=== PATIENT | male | born 1945 | race Caucasian/White ===

== ENCOUNTER → 2016-04-11 | Outpatient (CLI) | payer BC ==
[~2016-04-11] MED LIST: ACET-1311 PO; ASPEC81 PO; BND25X PO; FLNIN NAE; MULT-506 PO; NIAC500T11 PO; SIMV40TA2 PO; SYMIN/8045 INH
== END | disposition home or self-care (01) ==
LOC: C.LABSPEC 12:30
PROVIDERS: ATTEND Internal Medicine
DX: R19.4 Change in bowel habit (principal)

== ENCOUNTER → 2016-10-21 | Outpatient (CLI) | payer BC ==
[2016-10-21 13:26] LABS: BLOOD UREA NITROGEN 17 mg/dl (7-18); BUN/CREATININE RATIO 16.6 (10-20); CALCIUM 9.2 mg/dl (8.5-10.1); CARBON DIOXIDE 25 mmol/L (21-32); CHLORIDE 109 mmol/L (98-107); GLUCOSE 112 mg/dl (70-99); POTASSIUM 4.2 mmol/L (3.5-5.1); SODIUM 141 mmol/L (136-145)
[2016-10-21 13:33] LABS: CHOLESTEROL 155 mg/dl (0-200); CHOLESTEROL/HDL RATIO 3.5; HDL CHOLESTEROL 44 mg/dl; TRIGLYCERIDES 240 mg/dl (0-150); VERY LOW DENSITY LIPOPROT CALC 48 mg/dl
[2016-10-21 13:43] LABS: ESTIMATED AVERAGE GLUCOSE 131 mg/dl; HA1C FLAG Normal (Normal)
== END | disposition home or self-care (01) ==
LOC: C.LABSPEC 12:35
PROVIDERS: ATTEND Internal Medicine
DX: Z00.00 Encounter for general adult medical examination without abnormal findings (principal); E78.5 Hyperlipidemia, unspecified; R73.9 Hyperglycemia, unspecified

== ENCOUNTER 2017-02-16 07:44 | Inpatient (IN) | payer BC, OTHER ==
[2017-01-14 09:19] VITALS: BMI 33.0
--- NOTE | 2017-01-14 09:44 | PAT Medication Instructions ---
Service Date Jan 14, 2017. Current Home Medication List Aspirin (Aspirin Ec), 81 MG PO HS B-Complex W/Biotin & Folic Aci (Super B-50 B-Complex), 1 TAB PO QAM Budesonide/Formoterol Fumarate (Symbicort 80/4.5 Inhaler), 2 PUFFS INH BID Clotrimazole (Topical) (Anti-Fungal), 1 DOSE TOP PRN Diphenhydramine Hcl (Benadryl Allergy), 50 MG PO HS Fish Oil (Blossom-3), 2 CAP PO BID Fluticasone Propionate (Nasal) (Flonase Allergy Relief), 1 SPRAY DALE BID Ibuprofen (Motrin), 800 MG PO PO Magnesium Oxide (Mag-Ox), 800 MG PO QAM Melatonin (Melatonin Maximum Strengt), 1 TAB PO HS Montelukast Sodium (Singulair), 10 MG PO HS Multivitamin (Multivitamin), 1 TAB PO QAM Niacin (Niacin), 500 MG PO BID Simvastatin (Zocor), 40 MG PO QPM Vitamin A (Vitamin A), 8,000 UNITS PO QAM Medication Instructions For Your Scheduled Surgery - Hold the following medications 2 weeks prior to surgery: Fish Oil (Blossom-3), 2 CAP PO BID - Contact your surgeon for instructions for: Ibuprofen (Motrin), 800 MG PO PO - Hold the following medications 24 hours prior to surgery: Niacin (Niacin), 500 MG PO BID Clotrimazole (Topical) (Anti-Fungal), 1 DOSE TOP PRN - Hold the following medications the morning of surgery: Vitamin A (Vitamin A), 8,000 UNITS PO QAM Multivitamin (Multivitamin), 1 TAB PO QAM Magnesium Oxide (Mag-Ox), 800 MG PO QAM B-Complex W/Biotin & Folic Aci (Super B-50 B-Complex), 1 TAB PO QAM - Take the following medications the morning of surgery: Fluticasone Propionate (Nasal) (Flonase Allergy Relief), 1 SPRAY DALE BID Budesonide/Formoterol Fumarate (Symbicort 80/4.5 Inhaler), 2 PUFFS INH BID - Take the following medications as scheduled the night before surgery: Aspirin (Aspirin Ec), 81 MG PO HS Simvastatin (Zocor), 40 MG PO QPM Montelukast Sodium (Singulair), 10 MG PO HS Melatonin (Melatonin Maximum Strengt), 1 TAB PO HS Diphenhydramine Hcl (Benadryl Allergy), 50 MG PO HS Fluticasone Propionate (Nasal) (Flonase Allergy Relief), 1 SPRAY DALE BID Budesonide/Formoterol Fumarate (Symbicort 80/4.5 Inhaler), 2 PUFFS INH BID If you have any questions please call us at [phone] or [phone] or [phone]
--- NOTE | 2017-01-14 10:22 | DIAGNOSTIC IMAGING REPORT ---
TWO VIEW CHEST CLINICAL HISTORY: Preoperative examination. FINDINGS: PA and lateral chest radiographs are compared to study dated 03/20/2015. The heart is top normal in size and there is mild atherosclerotic calcification of the thoracic aorta. The lungs and pleural spaces are clear. There is no pneumothorax. The bony thorax appears intact. IMPRESSION: No active disease in the chest. Electronically signed by: Lio Mayfield M.D. 01/14/2017 10:21 AM Dictated Date/Time: 01/14/2017 10:20 AM
[2017-01-14 10:34] LABS: BASO % 0.5 %; BASO ABS # 0.03 K/uL (0-0.2); COMPLETE YES; EOS % 2.1 %; HEMATOCRIT 43.3 % (42-52); IG% 0.2 %; LYMPH % 35.8 %; LYMPH ABS # 2.07 K/uL (1.2-3.4); MEAN CELL VOLUME 88.9 fL (80-100); MEAN PLATELET VOLUME 9.2 fL (7.4-10.4); MONO % 10.4 %; PLATELET COUNT 181 K/uL (130-400); RED BLOOD COUNT 4.87 M/uL (4.7-6.1); WHITE BLOOD COUNT 5.79 K/uL (4.8-10.8)
[2017-01-14 10:45] LABS: INR 0.9 (0.9-1.1); PROTHROMBIN TIME (PATIENT) 9.9 SECONDS (9.0-12.0)
[2017-01-14 11:41] LABS: BLOOD UREA NITROGEN 15 mg/dl (7-18); BUN/CREATININE RATIO 17.2 (10-20); C-REACTIVE PROTEIN < 0.29 mg/dl (0-0.29); CALCIUM 9.1 mg/dl (8.5-10.1); CARBON DIOXIDE 25 mmol/L (21-32); CHLORIDE 109 mmol/L (98-107); CREATININE 0.89 mg/dl (0.60-1.40); GLUCOSE 123 mg/dl (70-99); POTASSIUM 4.5 mmol/L (3.5-5.1); SODIUM 140 mmol/L (136-145)
--- NOTE | 2017-02-12 10:30 | HISTORY & PHYSICAL EXAMINATION ---
DATE OF ADMISSION: 02/16/2017 CHIEF COMPLAINT: Bilateral knee pain, left greater than right. HISTORY OF PRESENT ILLNESS: This is a 71-year-old gentleman, well known to me from a right hip replacement in the past, who presents for treatment primarily of his left knee. He has got a long history of bilateral knee pain and discomfort, left side greater than the right. He did have his left knee scoped by Dr. Escamilla about 9 years ago. Over the past several years, he has developed increased pain and discomfort in his knee. It started really to hinder his ability to maintain an active lifestyle. I can keep up with his when he is walking. He has got chronic pain, which is worse the more he walks. He has had a steroid shot and viscosupplementation, which did not help much at all. Pain is mostly medial. Of note, the patient does have relatively recent history of left hip pain. We did work this up and it shows fairly minimal hip arthritis. He has continued conservative treatment for that. PAST MEDICAL HISTORY: Includes, 1. Elevated cholesterol. 2. Asthma. 3. Osteoarthritis. PAST SURGICAL HISTORY: Includes, 1. Right total hip replacement. 2. Left knee scope and partial meniscectomy 9 years ago. ALLERGIES: DUST. CURRENT MEDICINES: Include, 1. Simvastatin 40 mg. 2. Montelukast 10 mg a day. 3. Symbicort inhaler twice a day. 4. Niacin 500 mg twice a day. 5. Aspirin 81 mg. 6. Fluticasone 50 mcg twice a day. 7. Benadryl. 8. Centrum Silver. 9. [place] fish oil. 10. Magnesium with vitamin. 11. Super B complex. SOCIAL HISTORY: A 71-year-old male. He is . He does not smoke. Three drinks per week. FAMILY HISTORY: Negative for diabetes or blood clots. REVIEW OF SYSTEMS: Negative for diabetes, neurologic problems, vascular problems, or bleeding disorders. No history of DVT or PE. PHYSICAL EXAMINATION: GENERAL: Physical examination reveals a healthy, pleasant, middle-aged male. He looks to be in good health. HEENT: Benign. NECK: Supple. No lymphadenopathy. LUNGS: Clear to auscultation. HEART: Regular rate and rhythm. ABDOMEN: Soft, nontender, and nondistended. EXTREMITIES: Grossly neurovascularly intact except as follows: Examination of the left knee reveals the patient walks independently. He has got varus alignment to his knee with a little bit of a varus thrust. He has got well healed portal sites. Small knee effusion. He has got bony hypertrophy medially. Range of motion is about 10 degrees short of full extension and 20 degrees of flexion. He has got no real pain or limitations with hip motion. X-RAYS: X-rays of the left knee were reviewed. It shows advanced left knee DJD. He has got complete loss of his medial joint space. He has got cystic changes in the medial femoral condyle and medial tibial plateau. X-rays of the left hip and an MRI of the hip were also reviewed. It shows minimal joint effusion. Mild degenerative changes at best. No signs of AVN. ASSESSMENT: A 71-year-old male status post right total hip replacement and history of knee arthroscopy in the left side in the past with advanced left knee degenerative joint disease. Starting to limit his activities and would like to have his left knee fixed. PLAN: We are going to take him to the operating room and do a left total knee replacement. The risks and benefits of this procedure were explained to the patient including, but not limited to DVT, PE, , infection, neurological injury, vascular injury, bleeding problem, pain, limited range of motion, stiffness, failure to relieve his symptoms, incomplete relief of symptoms, need for further surgery in the future, fracture, leg length inequality, nerve palsy, dislocation, need for blood transfusion, etc. The patient understands and desires to proceed. Informed consent was obtained. As far as discharge plans, he is planning to be discharged home using [facility] home health program. CATY
[~2017-02-16] VITALS: Ht 177.8 cm; Wt 105.1 kg
[2017-02-16] VITALS (8 sets, daily range): BP systolic 125–167; BP diastolic 77–94; PULSE 75–104; TEMP 36.4–36.9; O2SAT 94–98; Ht 177.8 cm; Wt 105.1 kg
[~2017-02-16 07:44] MED LIST changes: -ACET-1311 PO; +ACETAMINOPHEN 500 MG TAB PO SCH; -ASPEC81 PO; +ASPI81TA28 PO; +B-COCAP5 PO; -BND25X PO; +BUPIVACAINE 0.25% 30 ML VIAL ONE; +BUPIVACAINE 0.5 % 5 MG/1 ML PF 10ML VIAL ONE; +BUPIVACAINE LIPOSOME 266 MG, BUPIVACAINE/EPINEPHRINE INJ 50 ML, SODIUM CHLORIDE 0.9% PF... INFIL SCH; +CEFAZOLIN 2000MG IV PUSH 10 ML IV SCH; +CLOT1CRE80 TOP; +DIPH1TAB87 PO; +FAMOTIDINE 20 MG TAB PO SCH; -FLNIN NAE; +FLUT0.15 NAE; +GABAPENTIN 300 MG CAP PO SCH; +IBUP-1459 PO; +LACTATED RINGER'S 1000ML 1,000 ML IV SCH; +LACTATED RINGER'S 1000ML IV SCH; +MAGN400T6 PO; +MELATAB2 PO; +METOCLOPRAMIDE HCL 10 MG TAB PO SCH; +MONT1TAB3 PO; +OMEG10007 PO; +SCOPOLAMINE 1.5 MG TDSY TD SCH; +TRANEXAMIC ACID INJ 1,000 MG in SYRINGE 0 ML IV SCH; +VITA80005 PO
[2017-02-16] MEDS ORDERED: EpHEDrine SULFATE INJ 50 MG/ML AMP IV PRN (08:00)
[2017-02-16] MEDS ORDERED: ATROPINE SULFATE 0.1 MG/ML 5ML SYR IV PRN (08:00)
[2017-02-16] MEDS ORDERED: FENTANYL CITRATE INJ 50 MCG/1 ML 2 ML VIAL IV PRN (08:00)
[2017-02-16] MEDS ORDERED: ONDANSETRON INJ 2 MG/ML 2 ML VIAL IV PRN ×2 (08:00→12:45)
--- NOTE | 2017-02-16 08:32 | History & Physical Bridge Note ---
H&P Re-Evaluation Bridge Note: I have examined the patient, reviewed the History & Physical and in the interval since the performance of the History & Physical I have noted the following changes of clinical significance: Patient also with left hip pain and wants an injection into left hip/bursa area while under anesthesia. We will inject left hip under anesthesia.
[2017-02-16] MEDS ORDERED: BETAMETH SOD PHOS/ACETATE IA 6 MG/ML IA ONE (08:45)
[2017-02-16] MEDS ORDERED: MIDAZOLAM HCL 1 MG/ML 2ML VIAL ONE ×3 (09:37→11:09)
[2017-02-16] MEDS ORDERED: FENTANYL CITRATE INJ 50 MCG/1 ML 2 ML VIAL ONE (09:38)
[2017-02-16] MEDS ORDERED: BACITRACIN 50000 UNIT VIAL ONE (10:36)
[2017-02-16] MEDS ORDERED: BUPIVACAINE 0.5 % 5 MG/1 ML MPF 30ML VIAL ONE (10:36)
[2017-02-16] MEDS ORDERED: SODIUM CHLORIDE 0.9% PF 50 ML VIAL ONE (10:36)
[2017-02-16] MEDS ORDERED: BUPIVACAINE/EPINEPHRINE 0.25% 1:200,000 30 ML VIAL ONE (10:36)
[2017-02-16] MEDS ORDERED: BUPIVACAINE LIPOSOME 1/3% 266 MG/20 ML VIAL INFIL ONE (10:36)
[2017-02-16] MEDS ORDERED: PROPOFOL IV EMULSION 10 MG/ML 20 ML VIAL IV ONE ×2 (11:08→11:18)
[2017-02-16] MEDS ORDERED: PHENYLEPHRINE HCL INJ 10 MG/ML VIAL ONE (11:56)
--- NOTE | 2017-02-16 12:34 | [facility] Post Operative Brief Note ---
Immediate Operative Summary Operative Date Feb 16, 2017. Pre-Operative Diagnosis Advanced Left Knee Degenerative Joint Disease + Left Hip Bursitis Post-Operative Diagnosis Advanced Left Knee Degenerative Joint Disease + Left Hip Bursitits Procedure(s) Performed Left Total Knee Arthroplasty + Left Hip Greater Trochanteric Bursa Injection Surgeon Dr. Mora Acid Cutter Surgeon(s) JUAN Fong Estimated Blood Loss 50 ml Findings Left Knee DJD Fluids (cc crystalloids) 1600 cc Specimens A. Left Knee Bone and Tissue Drains None Anesthesia Spinal Complication(s) None Disposition Recovery Room / PACU
[2017-02-16] MEDS ORDERED: BISACODYL 10 MG SUPP PR PRN (12:45)
[2017-02-16] MEDS ORDERED: ZOLPIDEM TARTRATE 5 MG TAB PO PRN (12:45)
[2017-02-16] MEDS ORDERED: METOCLOPRAMIDE HCL INJ 5 MG/ML 2 ML VIAL IV PRN (12:45)
[2017-02-16] MEDS ORDERED: MAGNESIUM HYDROXIDE SUSP 30 ML UDC PO PRN (12:45)
[2017-02-16] MEDS ORDERED: SILVER SULFADIAZINE 1% CR 50 GM JAR EXT PRN (12:45)
[2017-02-16] MEDS ORDERED: CLOTRIMAZOLE 1% CR 15 GM TUBE EXT PRN (12:45)
[2017-02-16] MEDS ORDERED: TAMSULOSIN HCL 0.4 MG CAP PO PRN (12:45)
[2017-02-16] MEDS ORDERED: ALUMINUM/MAGNESIUM/SIMETH (MAALOX MAX) 30 ML UDC PO PRN (12:45)
[2017-02-16] MEDS ORDERED: HYDROmorphone INJ 0.5 MG/0.5 ML SYR IV PRN (12:45)
--- NOTE | 2017-02-16 13:33 | OPERATIVE REPORT ---
DATE OF OPERATION: 02/16/2017 SURGEON: Sabas Mora MD CORPORATE COMMUNICATIONS SPECIALIST: JUAN Anaya PREOPERATIVE DIAGNOSES: 1. Left knee degenerative joint disease. 2. Left hip pain consistent with greater trochanter bursitis. POSTOPERATIVE DIAGNOSES: Same. PROCEDURES PERFORMED: 1. Left cemented posterior stabilized total knee arthroplasty. 2. Left hip greater trochanteric bursa injection. COMPLICATIONS: None. ESTIMATED BLOOD LOSS: 50 mL. FLUID REPLACEMENT: 1600 mL crystalloid fluid replacement. TOURNIQUET TIME: 60 minutes at 350 mmHg. ANESTHESIA: Spinal with adductor canal block. DRAINS: None. SPECIMENS: Left knee sent for pathology. OPERATIVE INDICATIONS: The patient is a 71-year-old male who has had a long history of left knee pain and discomfort. He had a knee arthroscopy done many years ago, which did provide some relief for a while. Over the past 5 years, he developed increased pain and discomfort and has become more debilitating and limiting over time. X-rays revealed advanced knee DJD. The patient elected to proceed with operative treatment. More recently, the patient has developed some left hip pain. X-rays are pretty normal. We did get an MRI, which showed no signs of major intra-articular pathology. This was felt most likely the bursitis. The patient is desiring an injection into his left hip bursa while under anesthesia. OPERATIVE FINDINGS: Operative findings revealed advanced left knee DJD. He had extensive grade 4 changes of the medial femoral condyle and medial tibial plateau. He had a varus deformity to his knee. The rest of the knee joint was pretty well preserved. Moderate-sized knee joint effusion. OPERATIVE IMPLANTS: Operative implants consisted of: 1. Biomet Vanguard size 75 left posterior stabilized femoral component. 2. Biomet size 79 tibial tray. 3. A 10-mm posterior stabilized polyethylene insert. 4. A 34 x 8.5 all poly patella. OPERATIVE PROCEDURE: The patient was taken to the operating room, identified and placed on the operating room table in the supine position. All contact areas were appropriately padded. IV antibiotics were provided by anesthesia team. A spinal anesthetic and adductor canal block had been provided in the holding area. Lebron catheter was placed in sterile fashion. Attention was then drawn to the hip injection. Left hip area was prepped with alcohol. 2 mL of Celestone and 8 mL of Marcaine were injected into the left greater trochanter bursa in a sterile fashion. A Band-Aid was placed over this. A left thigh tourniquet was then placed and attention was then drawn to knee replacement. The left leg was prepped and draped in the usual sterile fashion. The left leg was then elevated and exsanguinated with the use of an Esmarch and tourniquet was placed at 300 mmHg. An anterior approach of the left knee was then performed through a longitudinal incision centered over the patella. Sharp dissection was carried out through the subcutaneous tissues down to the level of the extensor mechanism. A medial parapatellar arthrotomy incision was made. Some subperiosteal dissection was carried out medially. The fat pad was resected from beneath the patellar tendon. The lateral patellofemoral ligament was released. The patella was everted and knee was flexed. The osteophytes were taken off the distal femur. The ACL and PCL were then released from the distal femur and the tibia subluxated anteriorly. The external tibial alignment jig was then placed in the anterior face of the tibia and adjusted 14 mm medially. Proximal tibial cut was made to remove about a millimeter or 2 of bone from the most deficient aspect of the medial tibial plateau. I took some osteophytes off posteriorly and medially. The tibia was sized to a size 79. Attention was then drawn to the femur. The distal femur was entered with a sharp drill. Intramedullary canal was suctioned. A left 6-degree valgus cutting guide was placed. Distal femoral cutting block was pinned in place. Distal femoral cut was made to take an additional 3 mm of bone off the distal femur. The femur was then sized to a size 75. We did downsize this slightly. The AP cutting block was pinned parallel to the epicondylar axis, which was 6 degrees of external rotation. The anterior cut, anterior chamfer, posterior cut, and posterior chamfer cuts were made. Box cutting guide was placed and adjusted slightly lateral and the box cut was made. The knee was flexed. The remnants of the medial and lateral menisci were excised. The osteophytes were taken off the posterior aspect of the femur. A trial femoral component was placed. Tibial tray was pinned in maximum external rotation and drill and stem punch were used to create defect in the proximal tibia for the tibial tray. The knee was then trialed and the 10-mm insert fit most appropriately. Attention was then drawn to the patella. The patella was cleaned of all soft tissues. Patella thickness measured 27 mm in thickness and it was cut down to 15. It was sized to a size 34 patella. Lug holes were drilled for a 34 patella. Lateral osteophyte was removed. Patella button was placed. Knee was taken through range of motion and patella tracked nicely with no thumbs test. Attention was then drawn toward placement of permanent components. All trial components were removed. Bone plug was placed in the distal femur to limit blood loss. A double batch of Palacos G cement was mixed. A left size 75 posterior stabilized femoral component, size 79 tibial tray, a 10-mm posterior stabilized polyethylene insert, and a 34 x 8.5 all poly patella were then cemented in place. Knee was brought out into full extension until cement hardened. A final cement check was then performed. Pericapsular tissues were injected with a total of 100 mL combination of 20 mL of Exparel, 30 mL of normal saline, and 50 mL of 0.25% Marcaine with epinephrine. The patient did receive 1 gram of tranexamic acid. The tourniquet was then let down for final tourniquet time of 60 minutes. Hemostasis was assured with the use of electrocautery. The wound was once again irrigated. The extensor mechanism was then closed with a combination of #1 PDS suture and #1 Vicryl suture in a [id number] fashion. Extensor mechanism was checked and found to be intact. The subcutaneous tissues were then closed with 2-0 Dexon suture in a buried interrupted fashion. Skin was closed skin jono. Leg was then cleaned and dried and a sterile dressing with Xeroform, 4 x 4, sterile cast padding and Phan bandage were applied. The patient then transferred to the recovery room in stable condition. The patient tolerated the procedure well with no complications. All needle and sponge counts were correct at the end of the operation. I attest to the content of the Intraoperative Record and any orders documented therein. Any exception s are noted below.
--- NOTE | 2017-02-16 13:49 | Anesthesiology Progress Note ---
Anesthesia Post Op Note Date & Time Feb 16, 2017 at 13:49 Vital Signs Pain Intensity: 0 Vital Signs Past 12 Hours Date Time Temp Pulse Resp B/P (MAP) Pulse Ox O2 Delivery O2 Flow Rate FiO2 02/16/17 13:45 74 20 142/77 97 Nasal Cannula 2 02/16/17 13:35 36.3 73 13 142/83 97 Nasal Cannula 2 02/16/17 13:25 73 19 140/79 98 Nasal Cannula 2 02/16/17 13:15 72 17 134/71 97 Nasal Cannula 2 02/16/17 13:05 73 17 129/81 99 Nasal Cannula 2 02/16/17 12:55 72 24 129/71 100 Oxymask 10 02/16/17 12:45 80 20 130/69 100 Oxymask 10 02/16/17 12:38 36.2 78 14 131/65 97 Oxymask 10 02/16/17 08:21 36.4 75 20 139/94 95 Room Air Notes Mental Status: alert / awake / arousable, participated in evaluation Pt Amnestic to Procedure: Yes Nausea / Vomiting: adequately controlled Pain: adequately controlled Airway Patency, RR, SpO2: stable & adequate BP & HR: stable & adequate Hydration State: stable & adequate Neuraxial Anesthesia: was administered, sensory block is resolving Anesthetic Complications: no major complications apparent
--- NOTE | 2017-02-16 14:28 | DIAGNOSTIC IMAGING REPORT ---
LEFT KNEE 2 VIEWS History: Left total knee arthroplasty. Degenerative arthritis. Postop. FINDINGS: The patient is status post a left total knee arthroplasty. The hardware is intact. No fracture or dislocation. Skin jono are in place. Approximately 2 cm medial to the superior skin staple there is a 3 mm radiopaque foreign body. IMPRESSION: Left total knee arthroplasty. No evidence for hardware complication. Approximately 2 cm medial to the superior skin staple there is a 3 mm radiopaque foreign body. This was present on the 12/14/2016 the radiograph. Electronically signed by: Venkatesh Ohara M.D. 02/16/2017 2:27 PM Dictated Date/Time: 02/16/2017 2:13 PM
[2017-02-16] MEDS: D5W AND 1/2NSS + 20MEQ KCL 1,000 ML IV SCH (16:16)
[2017-02-16] MEDS: CHECK SCOPOLAMINE PATCH PLACEMENT SCH (16:16)
--- NOTE | 2017-02-16 17:41 | PROGRESS NOTE ---
DATE: 02/16/2017 SUBJECTIVE: A 71-year-old gentleman postop from a left knee replacement and greater trochanteric bursa injection. He is doing well. I just started to get the feeling back in his leg. He has no pain. No chest pain or shortness of breath. Not feeling dizzy or lightheaded. OBJECTIVE: VITAL SIGNS: Temperature is 36.5. Vital signs stable. GENERAL: Reveals a pleasant middle-aged male. He is lying in bed and talking to his family. He looks pretty comfortable. EXTREMITIES: Examination of the left leg reveals the leg to be well aligned. Dressing is clean, dry and intact. He can just slightly dorsiflex and plantarflex his foot. He has brisk refill. He does have some sensation but decrease in his left leg. X-RAYS: X-rays of the left knee from recovery room were reviewed. It shows a cemented posterior stabilized total knee arthroplasty. Components looked to be in good position. No signs of problems. ASSESSMENT: A 71-year-old gentleman postop from a left total knee replacement and injection of the greater trochanter bursa. He is doing well. Nerve function is just returning. Not having any pain yet. PLAN: 1. DVT prophylaxis including thigh high TEDs, SCDs, and aspirin twice a day. 2. PT, OT. He can weightbear as tolerated. Left total knee protocol. 3. Pain control. Doing well with current pain regimen. As there was a block he also likely need some pain medicine. He is scheduled for around the clock Tylenol and Toradol. 4. IV antibiotics x24 hours. 5. Disposition: Plan to discharge to home with some home health once adequately recovered.
[2017-02-16] MEDS: CEFAZOLIN IV 2,000 MG in SYRINGE 0 ML IV SCH (19:00)
[2017-02-16] MEDS ORDERED: TRANEXAMIC ACID INJ 1,000 MG in SODIUM CHLORIDE 0.9% 100ML 100 ML IV SCH (19:00)
[2017-02-16] MEDS: KETOROLAC TROMETHAMINE 15 MG/ML VIAL IV. SCH (19:00)
[2017-02-16] MEDS: FERROUS GLUCONATE 324 MG TAB PO SCH (19:00)
[2017-02-16] MEDS: MONTELUKAST SOD 10 MG TAB PO SCH (20:46)
[2017-02-16] MEDS: NIACIN 500 MG TAB IMMEDIATE RELEASE PO SCH (20:46)
[2017-02-16] MEDS: SENNA 8.6 MG TAB PO SCH (20:46)
[2017-02-16] MEDS: SIMVASTATIN 40 MG TAB PO SCH (20:46)
[2017-02-16] MEDS: DOCUSATE SODIUM 100 MG CAP PO SCH (20:46)
[2017-02-16] MEDS: ASPIRIN 325 MG ECTAB PO SCH (20:46)
[2017-02-16] MEDS: FLUTICASONE PROPIONATE NA SPR 16 GM BTL NAE SCH (20:47)
[2017-02-16] MEDS: BUDESONIDE/FORMOTEROL FUMARATE 80/4.5 60 PUFFS/INHALER INH SCH (20:47)
[2017-02-16] MEDS ORDERED: NON-FORMULARY MEDICATION (Melatonin (Melatonin Maximum Strengt) 1 TAB) PO SCH (21:00)
[2017-02-16] MEDS: ACETAMINOPHEN 500 MG TAB PO SCH (21:58)
[2017-02-17] VITALS (11 sets, daily range): BP systolic 103–150; BP diastolic 62–90; PULSE 93–116; TEMP 36.5–37.1; O2SAT 94–98
[2017-02-17] MEDS: CHECK SCOPOLAMINE PATCH PLACEMENT SCH ×4 (00:01→23:40)
[2017-02-17] MEDS: D5W AND 1/2NSS + 20MEQ KCL 1,000 ML IV SCH ×2 (00:01→06:23)
[2017-02-17] MEDS: KETOROLAC TROMETHAMINE 15 MG/ML VIAL IV. SCH ×5 (00:06→23:40)
[2017-02-17] MEDS: CEFAZOLIN IV 2,000 MG in SYRINGE 0 ML IV SCH (02:17)
[2017-02-17] MEDS: ACETAMINOPHEN 500 MG TAB PO SCH ×3 (05:41→21:11)
[2017-02-17 06:40] LABS: HEMATOCRIT 35.6 % (42-52); MEAN CELL VOLUME 89.4 fL (80-100); MEAN CORPUSCULAR HEMOGLOBIN 31.2 pg (25-34); MEAN CORPUSCULAR HGB CONC 34.8 g/dl (32-36); PLATELET COUNT 166 K/uL (130-400); RED BLOOD COUNT 3.98 M/uL (4.7-6.1); WHITE BLOOD COUNT 13.02 K/uL (4.8-10.8)
[2017-02-17 07:17] LABS: BUN/CREATININE RATIO 14.3 (10-20); CALCIUM 8.4 mg/dl (8.5-10.1); CREATININE 1.14 mg/dl (0.60-1.40); POTASSIUM 3.9 mmol/L (3.5-5.1)
[2017-02-17] MEDS: VITAMIN B COMPLEX TAB PO SCH (08:36)
[2017-02-17] MEDS: FERROUS GLUCONATE 324 MG TAB PO SCH ×3 (08:36→18:25)
[2017-02-17] MEDS: MULTIVITAMIN TAB PO SCH (08:36)
[2017-02-17] MEDS: PANTOprazole SOD 40 MG TAB PO SCH (08:36)
[2017-02-17] MEDS: DOCUSATE SODIUM 100 MG CAP PO SCH ×2 (08:37→21:11)
[2017-02-17] MEDS: MAGNESIUM OXIDE 400 MG TAB PO SCH (08:37)
[2017-02-17] MEDS: ASPIRIN 325 MG ECTAB PO SCH ×2 (08:37→21:11)
[2017-02-17] MEDS: NIACIN 500 MG TAB IMMEDIATE RELEASE PO SCH ×2 (08:37→21:11)
[2017-02-17] MEDS: BUDESONIDE/FORMOTEROL FUMARATE 80/4.5 60 PUFFS/INHALER INH SCH ×2 (08:38→21:11)
[2017-02-17] MEDS: FLUTICASONE PROPIONATE NA SPR 16 GM BTL NAE SCH ×2 (08:39→21:11)
[2017-02-17] MEDS: TRAMADOL HCL 50 MG TAB PO PRN ×2 (08:45→14:28)
[2017-02-17] MEDS ORDERED: MULTIVITAMIN TAB PO SCH (09:00)
[2017-02-17] MEDS ORDERED: NON-FORMULARY MEDICATION (Vitamin A 8,000 UNITS) PO SCH (09:00)
[2017-02-17] MEDS ORDERED: ASPEC325 PO (10:43)
[2017-02-17] MEDS ORDERED: ACET-24 PO (10:43)
[2017-02-17] MEDS ORDERED: MORP-157 PO (10:43)
[2017-02-17] MEDS ORDERED: ULT50X PO (10:43)
--- NOTE | 2017-02-17 11:01 | PROGRESS NOTE ---
DATE: 02/17/2017 DATE: 02/17/2017 SUBJECTIVE: A 71-year-old gentleman postop day #1 from left total knee replacement and injection in the left hip. He is doing pretty well. Pains is 2-3 while sitting down, but 5-6 with walking. He has just been through therapy. She describes mostly quad pain. No chest pain or shortness of breath. Not feeling dizzy or lightheaded. OBJECTIVE: VITAL SIGNS: Temperature is 36.6. Vital signs stable. GENERAL: Shows a pleasant, middle-aged male. He is sitting up at this bedside chair talking to his . He looks pretty comfortable. EXTREMITIES: Examination of left leg reveals the dressing to be in place. There is a little bit of bloody drainage on the anterior aspect of his dressing which has been reinforced. He can dorsiflex and plantarflex his foot appropriately. He has got brisk refill. LABORATORY DATA: Hemoglobin is 12.4, hematocrit 35.6. White cell count 13.02. Electrolytes are stable. ASSESSMENT: A 71-year-old gentleman postoperative day 1 from left knee replacement and left hip injection, doing well. The hip pain has been pretty good. Knee is sore, but manageable with meds. PLAN: 1. DVT prophylaxis including thigh-high TEDs, SCDs, and aspirin twice a day. 2. PT, OT. Weightbear as tolerated. Left total knee protocol. 3. Pain control. Doing reasonably well with current pain regimen. 4. Disposition. He is planning to be discharged home with likely some home health once adequately recovered.
[2017-02-17] MEDS: SENNA 8.6 MG TAB PO SCH (21:11)
[2017-02-17] MEDS: SIMVASTATIN 40 MG TAB PO SCH (21:12)
[2017-02-17] MEDS: MONTELUKAST SOD 10 MG TAB PO SCH (21:12)
[2017-02-18] MEDS: ACETAMINOPHEN 500 MG TAB PO SCH (05:59)
[2017-02-18] MEDS: KETOROLAC TROMETHAMINE 15 MG/ML VIAL IV. SCH ×2 (05:59→12:03)
--- NOTE | 2017-02-18 07:30 | Discharge Instructions ---
Discharge Instructions Date of Service Feb 18, 2017. Admission Reason for Admission: Left Knee Degenerative Joint Disease Discharge Discharge Diagnosis / Problem: Left KNee Replacement Discharge Goals Goal(s): Decrease discomfort, Improve function, Increase independence, Improve disease control, Therapeutic intervention Activity Recommendations Activity Limitations: per Instructions/Follow-up section Weightbearing Status: Left weightbearing . Instructions / Follow-Up Instructions / Follow-Up ACTIVITY RECOMMENDATIONS: Physical Therapy: * You will go to physical therapy three times each week for four to six weeks after your surgery in order to regain your knee range of motion and to retrain your knee to work properly. * It is just as important to make sure you are getting your knee perfectly straight as it is to regain your knee bend. * Taking a pain pill an hour before therapy can help you have a more productive and comfortable therapy session. Home Exercise: * You were shown a series of exercises (heel props, heel slides, etc.) in the hospital. Do these exercises three to four times each day including the exercises you were shown in physical therapy. Walking: * Get up and walk several times each day. For the first four weeks, try not to stand or walk for more than one hour at a time. If you do stand or walk for more than one hour, you will not hurt anything, but your knee and leg will likely swell. * As you feel comfortable, you may change from the walker or crutches to a cane and then to independent walking. MEDICATIONS: New Medicine: * You will likely be taking one or more of these medications: 1. MS Contin - A long-acting pain medication. Take 1 tablet twice a day for the first ten days to decrease your baseline level of pain. 2. Tramadol - A quick and shorter-acting pain medication. Take one to two tablets every four to six hours to lessen your pain. 3. Aspirin - Thins your blood to lessen the chance of forming a blood clot. * The most common side effects of pain medicine and iron are nausea and constipation. If nausea or constipation is too much of a problem or if you have any questions about your new medicines or doses, call [facility] at . We will try to help you manage these issues. VERY IMPORTANT TO READ AND REVIEW" Pain: * The immediate post-operative period after knee replacement surgery is often quite painful. * You are given a prescription for pain medicine. You should take it, as directed, when you need it, especially before physical therapy and before going to bed. Pain that interferes with sleep is very common and can last several months. * You will likely need pain medicine for the first four to six weeks. It will not stop all of the pain. The pain will lessen and as you feel better, you may change to milder pain medicine such as Tylenol. * The most common side effects of pain medicine are nausea and constipation, so don't take more than you need. SPECIAL CARE INSTRUCTIONS: TEDs/Elastic Stockings: * The white elastic stockings help limit swelling and prevent blood clots from forming in your legs. The more you wear them, the more they work. * Wear them for six weeks after knee replacement surgery and four weeks after partial knee replacement. Prevention of Infection: * Take antibiotics one hour before any dental cleaning, dental work, urological procedure, gastrointestinal procedure or any invasive surgery in order to prevent your new joint from getting infected. * You may get the antibiotics from the doctor performing the procedure or you may call our office at before and we will call in a prescription to the pharmacy of your choice. Things to Watch For: * Drainage from the incision site that occurs more than one week after your surgery. * Severely increased knee/leg pain or swelling. * Increased redness at the incision site. * Fever above 102 degrees Fahrenheit. * Unusual chest pain or shortness of breath. * Unusual pain or burning with urination. Call [facility] at with any of the above problems or if you have any questions about your medicines or recovery. FOLLOW UP VISIT: Make an appointment to see your doctor for approximately two weeks after surgery for a progress check and staple removal by calling the office at . Current Hospital Diet Patient's current hospital diet: Regular Diet Discharge Diet Recommended Diet: Regular Diet Procedures Procedures Performed: Left Total Knee Arthroplasty + Left Hip Greater Trochanteric Bursa Injection Pending Studies Studies pending at discharge: no Medical Emergencies . Who to Call and When: Medical Emergencies: If at any time you feel your situation is an emergency, please call 911 immediately. . Non-Emergent Contact Non-Emergency issues call your: Surgeon . "Provider Documentation" section prepared by Sabas Mora. . VTE Core Measure Inpt VTE Proph given/why not?: Other Anticoagulation, T.E.D. Stockings, SCD's
--- NOTE | 2017-02-18 07:38 | PROGRESS NOTE ---
DATE: 02/18/2017 SUBJECTIVE: A 71-year-old gentleman postop day #2 from left knee replacement and greater trochanteric bursa injection. He is doing well. Really not having that much pain. He has been a bit tachycardic, but completely asymptomatic. Denies any chest pain. No shortness of breath. Not feeling dizzy or lightheaded. Pain is reasonably well controlled. OBJECTIVE: VITAL SIGNS: Temperature is 36.7 and pulse is 94. Blood pressure is stable. GENERAL: Physical examination reveals a pleasant, middle-aged male. He was sleeping when I entered the room this morning. On exam, his heart rate is probably in the low 90s on exam today. HEART: Regular rhythm. ABDOMEN: Soft, nontender, and nondistended. EXTREMITIES: Grossly neurovascularly intact except as follows: Examination of the left lower extremity reveals the leg to be well aligned. Dressing is clean, dry, and intact. He can dorsiflex and plantarflex his foot appropriately. He is neurologically intact. EKG just shows sinus tachycardia. ASSESSMENT: A 71-year-old gentleman postop day #2 from a left knee replacement, doing well. Pain is controlled. He has been a little bit tachycardic, but completely asymptomatic and heart rate seems better this morning. PLAN: 1. DVT prophylaxis including thigh-high TEDs, SCDs, and aspirin twice a day. 2. PT and OT. Weightbear as tolerated. Left total knee protocol. 3. Pain control. Doing pretty well with current pain regimen. 4. Disposition: Plan to discharge to home with some home health later today if does okay in therapy and pain is controlled.
[2017-02-18 07:44] VITALS: BP 127/76; PULSE 87; TEMP 36.7; O2SAT 97
[2017-02-18] MEDS: CHECK SCOPOLAMINE PATCH PLACEMENT SCH (08:18)
[2017-02-18] MEDS: FLUTICASONE PROPIONATE NA SPR 16 GM BTL NAE SCH (08:18)
[2017-02-18] MEDS: ASPIRIN 325 MG ECTAB PO SCH (08:19)
[2017-02-18] MEDS: BUDESONIDE/FORMOTEROL FUMARATE 80/4.5 60 PUFFS/INHALER INH SCH (08:19)
[2017-02-18] MEDS: DOCUSATE SODIUM 100 MG CAP PO SCH (08:19)
[2017-02-18] MEDS: MAGNESIUM OXIDE 400 MG TAB PO SCH (08:19)
[2017-02-18] MEDS: VITAMIN B COMPLEX TAB PO SCH (08:19)
[2017-02-18] MEDS: PANTOprazole SOD 40 MG TAB PO SCH (08:20)
[2017-02-18] MEDS: NIACIN 500 MG TAB IMMEDIATE RELEASE PO SCH (08:20)
[2017-02-18] MEDS: MULTIVITAMIN TAB PO SCH (08:20)
[2017-02-18] MEDS: FERROUS GLUCONATE 324 MG TAB PO SCH (08:20)
[2017-02-18] MEDS: TRAMADOL HCL 50 MG TAB PO PRN ×2 (08:53→13:08)
[2017-02-18 12:29] VITALS: BP 127/76; PULSE 87; TEMP 36.7; O2SAT 97
== END 2017-02-18 13:31 | disposition home health service (06) | DRG 470 ==
LOC: C.ACU 07:44 → C.3E 08:30 → ENRESERV 13:12
PROVIDERS: ADMIT Orthopaedic Surgery Sports Medicine; ATTEND Orthopaedic Surgery Sports Medicine
PROC: 0SRD0J9 Replacement of Left Knee Joint with Synthetic Substitute, Cemented, Open Approach (ICD-10-PCS; principal; 2017-02-16 10:30)
DX: M17.12 Unilateral primary osteoarthritis, left knee (principal); M21.162 Varus deformity, not elsewhere classified, left knee; M25.462 Effusion, left knee; M71.9 Bursopathy, unspecified; M25.452 Effusion, left hip; E78.00 Pure hypercholesterolemia, unspecified; J45.909 Unspecified asthma, uncomplicated; E78.5 Hyperlipidemia, unspecified; E66.9 Obesity, unspecified; Z68.33 Body mass index [BMI] 33.0-33.9, adult; Z96.641 Presence of right artificial hip joint; Z87.891 Personal history of nicotine dependence; Z79.82 Long term (current) use of aspirin; Z79.51 Long term (current) use of inhaled steroids; Z79.1 Long term (current) use of non-steroidal anti-inflammatories (NSAID); Z79.899 Other long term (current) drug therapy

== ENCOUNTER → 2017-05-03 | Outpatient (CLI) | payer BC ==
[~2017-05-03] MED LIST changes: +ACET-24 PO; -ACETAMINOPHEN 500 MG TAB PO SCH; +ASPEC325 PO; -ASPI81TA28 PO; -BUPIVACAINE 0.25% 30 ML VIAL ONE; -BUPIVACAINE 0.5 % 5 MG/1 ML PF 10ML VIAL ONE; -BUPIVACAINE LIPOSOME 266 MG, BUPIVACAINE/EPINEPHRINE INJ 50 ML, SODIUM CHLORIDE 0.9% PF... INFIL SCH; -CEFAZOLIN 2000MG IV PUSH 10 ML IV SCH; -FAMOTIDINE 20 MG TAB PO SCH; -GABAPENTIN 300 MG CAP PO SCH; -LACTATED RINGER'S 1000ML 1,000 ML IV SCH; -LACTATED RINGER'S 1000ML IV SCH; -METOCLOPRAMIDE HCL 10 MG TAB PO SCH; -SCOPOLAMINE 1.5 MG TDSY TD SCH; -TRANEXAMIC ACID INJ 1,000 MG in SYRINGE 0 ML IV SCH; +ULT50X PO
[2017-05-03 14:01] LABS: BLOOD UREA NITROGEN 13 mg/dl (7-18); CALCIUM 9.2 mg/dl (8.5-10.1); CARBON DIOXIDE 27 mmol/L (21-32); CHOLESTEROL 151 mg/dl (0-200); CREATININE 0.87 mg/dl (0.60-1.40); GLUCOSE 115 mg/dl (70-99); POTASSIUM 3.8 mmol/L (3.5-5.1); SODIUM 139 mmol/L (136-145)
[2017-05-03 14:05] LABS: LDL CHOLESTEROL (DIRECT) 85 mg/dl
== END | disposition home or self-care (01) ==
LOC: C.LABSPEC 12:45
PROVIDERS: ATTEND Internal Medicine
DX: E78.5 Hyperlipidemia, unspecified (principal); R73.9 Hyperglycemia, unspecified

== ENCOUNTER → 2017-10-29 | Outpatient (CLI) | payer BC ==
[2017-10-29 13:25] LABS: HEMOGLOBIN A1C 6.7 % (4.5-5.6)
[2017-10-29 13:26] LABS: ALBUMIN 3.8 gm/dl (3.4-5.0); ALT/SGPT 56 U/L (12-78); AST/SGOT 21 U/L (15-37); BLOOD UREA NITROGEN 15 mg/dl (7-18); CALCIUM 8.7 mg/dl (8.5-10.1); CARBON DIOXIDE 24 mmol/L (21-32); CREATININE 0.96 mg/dl (0.60-1.40); GLUCOSE 121 mg/dl (70-99); POTASSIUM 4.2 mmol/L (3.5-5.1); SODIUM 139 mmol/L (136-145)
[2017-10-29 13:33] LABS: ALKALINE PHOSPHATASE 70 U/L (45-117); CHOLESTEROL 157 mg/dl (0-200); LDL CHOLESTEROL (DIRECT) 94 mg/dl; TOTAL PROTEIN 7.4 gm/dl (6.4-8.2)
== END | disposition home or self-care (01) ==
LOC: C.LABSPEC 08:30
PROVIDERS: ATTEND Internal Medicine
DX: E78.5 Hyperlipidemia, unspecified (principal); R73.9 Hyperglycemia, unspecified

== ENCOUNTER 2024-12-22 08:21 | Observation (INO) ==
--- NOTE | 2024-11-23 13:12 | PAT Medication Instructions ---
Medication Instructions Date of Service November 23, 2024 Home Medications Medication Instructions Recorded albuterol sulfate 90 mcg/actuation 2 puff inhalation QID PRN 01/06/23 aerosol inhaler Shortness Of Breath #54 grams clotrimazole 1 % topical cream (Clotrimazole AF) 1 applic topical BID PRN Rash diphenhydramine HCl 25 mg capsule (Benadryl) 25 mg PO HS fluticasone propionate 50 mcg/actuation nasal spray,suspension 1 spray intranasal BID magnesium oxide 400 mg PO QAM melatonin 5 mg tablet 5 mg PO HS niacin 500 mg tablet 500 mg PO QAM omega 7-sxh-xcj-fish oil 1,000 mg (120 mg-180 mg) capsule (Fish Oil) 1 tab PO DAILY potassium 99 mg tablet 99 mg PO BID simvastatin 40 mg tablet 40 mg PO HS turmeric root extract 500 mg capsule 500 mg PO QAM vitamin A 2,400 mcg capsule 8,000 unit PO QAM vitamin B complex 1 tab PO DAILY aspirin 81 mg tablet 81 mg PO Q2D cholecalciferol (vitamin D3) 50 mcg (2,000 unit) tablet 2,000 units PO Q2D albuterol sulfate 90 mcg/actuation aerosol inhaler 2 puff inhalation QID PRN Shortness Of Breath Moringa oleifera 500 mg capsule 1,000 mg PO BID ascorbic acid 100 mg-zinc sulfate 200 mg tablet 1 tab PO DAILY budesonide-formoterol HFA 160 mcg-4.5 mcg/actuation aerosol inhaler 2 puff inhalation BID metformin 1,000 mg tablet 1,000 mg PO BID mometasone 0.1 % topical cream 1 applic topical DAILY PRN skin rash montelukast 10 mg tablet 10 mg PO HS sitagliptin 25 mg tablet 25 mg PO QAM Continue as directed ASK your prescriber and surgeon aspirin 81 mg tablet 81 mg PO Q2D STOP taking 2 weeks before surgery omega 8-mwb-xhk-fish oil 1,000 mg (120 mg-180 mg) capsule (Fish Oil) 1 tab PO DAILY turmeric root extract 500 mg capsule 500 mg PO QAM vitamin A 2,400 mcg capsule 8,000 unit PO QAM Moringa oleifera 500 mg capsule 1,000 mg PO BID STOP taking 48 hours before surgery niacin 500 mg tablet 500 mg PO QAM STOP taking 24 hours before surgery clotrimazole 1 % topical cream (Clotrimazole AF) 1 applic topical BID PRN Rash mometasone 0.1 % topical cream 1 applic topical DAILY PRN skin rash DO NOT take the morning of surgery magnesium oxide 400 mg PO QAM potassium 99 mg tablet 99 mg PO BID vitamin B complex 1 tab PO DAILY cholecalciferol (vitamin D3) 50 mcg (2,000 unit) tablet 2,000 units PO Q2D ascorbic acid 100 mg-zinc sulfate 200 mg tablet 1 tab PO DAILY metformin 1,000 mg tablet 1,000 mg PO BID sitagliptin 25 mg tablet 25 mg PO QAM Take morning of surgery With a small sip of water, OTHERWISE NOTHING TO EAT OR DRINK AFTER MIDNIGHT: fluticasone propionate 50 mcg/actuation nasal spray,suspension 1 spray intranasal BID albuterol sulfate 90 mcg/actuation aerosol inhaler 2 puff inhalation QID PRN Shortness Of Breath (use if needed; please bring with you to hospital day of surgery if possible) budesonide-formoterol HFA 160 mcg-4.5 mcg/actuation aerosol inhaler 2 puff inhalation BID Take evening before surgery diphenhydramine HCl 25 mg capsule (Benadryl) 25 mg PO HS fluticasone propionate 50 mcg/actuation nasal spray,suspension 1 spray intranasal BID melatonin 5 mg tablet 5 mg PO HS potassium 99 mg tablet 99 mg PO BID simvastatin 40 mg tablet 40 mg PO HS albuterol sulfate 90 mcg/actuation aerosol inhaler 2 puff inhalation QID PRN Shortness Of Breath (if needed) budesonide-formoterol HFA 160 mcg-4.5 mcg/actuation aerosol inhaler 2 puff inhalation BID metformin 1,000 mg tablet 1,000 mg PO BID montelukast 10 mg tablet 10 mg PO HS Other Notes If you have any questions please call us at [phone] or [phone] or [phone] or [phone]
--- NOTE | 2024-11-28 09:08 | Anesthesiology Consultation ---
Date of Service November 28, 2024 Assessment & Plan (1) Encounter for pre-operative examination: Plan - Check BSG DOS - Infectious disease screening: Per assessment on 11/28/24- No known recent infectious disease contacts or current infectious disease symptoms. - Outpatient joint assessment: Pt currently scheduled for inpatient pathway. If surgeon requests review for outpatient joint pathway, patient is not a recommended candidate for outpatient joint program from anesthesia standpoint based on available information. Chart Review Chart Review: Acceptable Risk for Surgery and Patient seen in Pre Admission Testing Teaching & Discussion Pre-Anesthesia Teaching/Discussion Notes: Instructed NPO after midnight before surgery,except medications with 15 cc of water. Medication instructions provided according to the PAT guidelines. History Surgery Operation Date: 12/22/24 12:00 Proposed Procedures p Robotic Assisted Right Total Knee Arthroplasty - Kam Hansen DO Height/Weight Height: 5 ft 10 in Weight: 97.1 kg Allergies Allergy/AdvReac Type Severity Reaction Status Date / Time No Known Drug Allergies Allergy Unknown NONE Verified 11/22/24 14:33 house dust mite Allergy Verified 11/22/24 14:33 Medications Home Medications Medication Instructions Recorded Confirmed Last Taken clotrimazole 1 % topical cream 1 applic topical BID PRN Rash 02/03/18 11/22/24 Unknown (Clotrimazole AF) diphenhydramine HCl 25 mg capsule 25 mg PO HS 02/03/18 11/22/24 03/01/18 20:00 (Benadryl) 25 mg fluticasone propionate 50 1 spray intranasal BID 02/03/18 11/22/24 11/05/22 07:00 mcg/actuation nasal spray,suspension magnesium oxide 400 mg PO QAM 02/03/18 11/22/24 11/04/22 08:00 melatonin 5 mg tablet 5 mg PO HS 02/03/18 11/22/24 11/04/22 20:00 niacin 500 mg tablet 500 mg PO QAM 02/03/18 11/22/24 11/04/22 08:00 omega 5-zoa-hcp-fish oil 1,000 mg 1 tab PO DAILY 02/03/18 11/22/24 11/04/22 08:00 (120 mg-180 mg) capsule (Fish Oil) potassium 99 mg tablet 99 mg PO BID 02/03/18 11/22/24 11/04/22 08:00 simvastatin 40 mg tablet 40 mg PO HS 02/03/18 11/22/24 11/04/22 20:00 turmeric root extract 500 mg 500 mg PO QAM 02/03/18 11/22/24 11/04/22 08:00 capsule vitamin A 2,400 mcg capsule 8,000 unit PO QAM 02/03/18 11/22/24 11/04/22 08:00 vitamin B complex 1 tab PO DAILY 02/03/18 11/22/24 11/04/22 08:00 aspirin 81 mg tablet 81 mg PO Q2D 12/22/18 11/22/24 11/03/22 cholecalciferol (vitamin D3) 50 2,000 units PO Q2D 12/22/18 11/22/24 11/04/22 08:00 mcg (2,000 unit) tablet albuterol sulfate 90 mcg/actuation 2 puff inhalation QID PRN 01/06/23 11/22/24 Unknown aerosol inhaler Shortness Of Breath #54 grams Moringa oleifera 500 mg capsule 1,000 mg PO BID 11/22/24 11/22/24 Unknown ascorbic acid 100 mg-zinc sulfate 1 tab PO DAILY 11/22/24 11/22/24 Unknown 200 mg tablet budesonide-formoterol HFA 160 2 puff inhalation BID 11/22/24 11/22/24 Unknown mcg-4.5 mcg/actuation aerosol inhaler metformin 1,000 mg tablet 1,000 mg PO BID 11/22/24 11/22/24 Unknown mometasone 0.1 % topical cream 1 applic topical DAILY PRN skin 11/22/24 11/22/24 Unknown rash montelukast 10 mg tablet 10 mg PO HS 11/22/24 11/22/24 Unknown sitagliptin 25 mg tablet 25 mg PO QAM 11/22/24 11/22/24 Unknown Past Medical History Medical History Asthma Diabetes mellitus, type 2 NIDDM History of urinary urgency HLD (hyperlipidemia) Hx of colonic polyps Exercise / Class Metabolic Activity II 4-5 Yardwork/Stairs/Walk up hill (one FS: No CP, no SOB) Past Family History Family History Unknown Brain cancer Heart disease No family history of bleeding disorder Father Other specified hearing loss, unspecified ear Denies family history of Clotting disorder Past Surgical History Surgical History History of total hip arthroplasty R/L History of total knee replacement Left TKA + right hip injection: SAB + regional at [facility] (02/16/17) Hx of colonoscopy (2022) Hx of detached retina repair 30+ years ago S/P tube myringotomy x2, no tubes in ears currently Past Anesthesia History No Hx of Anesthesia Complications and No Family Hx of Anesthesia Complications History of PONV No Hx of PONV and No Hx of Motion Sickness Social History Smoking Status: Former smoker Do You Dip or Chew Tobacco: No Smoking End Date: Quit 45 years ago Hx Alcohol Use: Yes (Hx occasional use, None for last 6 months) Hx Substance Use: No substance use type: does not use Review of Systems Patient denies chest pain, shortness of breath, dyspnea on exertion, fever, chills, cough, wheezing, palpitations. Physical Exam Vital Signs BP 142/86 P 81 TEMP 97.9 SP02 96%RA RESP 16 Physical Full cervical extension range of motion. Full TMJ range of motion. TMD 3 finger breaths Mallampati Score II Dentition: intact, several caps/crowns, + implant (side) Lungs: clear throughout to auscultation Cardiac: regular rate and rhythm, no murmurs noted Spine: normal Carotid arteries: negative bruit Extremities: no LE edema Lab Results Anesthesia Preop Results Results Anesthesia Widget: WBC 8.54 K/ul (4.8-10.8) 11/28/24 Hgb 13.8 g/dl (14.0-18.0) L 11/28/24 Hct 39.9 % (42.0-52.0) L 11/28/24 Plt 207 K/uL (130-400) 11/28/24 Na 140 mmol/L (136-145) 11/28/24 K 4.2 mmol/L (3.5-5.1) 11/28/24 Cl 107 mmol/L (98-107) 11/28/24 CO2 24 mmol/L (21-32) 11/28/24 BUN 13 mg/dl (6-23) 11/28/24 Creat 0.82 mg/dl (0.6-1.4) 11/28/24 Glucose Level 133 mg/dl (70-99(Fasting)) H 11/28/24 PT 9.8 Seconds (9.0-12.0) 11/28/24 PTT 30 Seconds (21-31) 11/28/24 INR 0.9 (0.9-1.1) 11/28/24 HA1c 7.4 % (4.5-5.6) H 11/28/24 Blood Type O Positive 11/28/24 Antibody Screen NEGATIVE 11/28/24 Testing Electrocardiogram Date: 05/26/24 ST at 102bpm. First degree AVB. Occasional PVCs. "Otherwise normal ECG" Chest X-Ray Date: 05/26/24 Findings: + NAD
[~2024-12-22 08:21] MED LIST changes: -ACET-24 PO; -ASPEC325 PO; -B-COCAP5 PO; -CLOT1CRE80 TOP; -DIPH1TAB87 PO; -FLUT0.15 NAE; -IBUP-1459 PO; -MAGN400T6 PO; -MELATAB2 PO; -MONT1TAB3 PO; -MULT-506 PO; -NIAC500T11 PO; -OMEG10007 PO; +ROPIVACAINE 0.5% 5 MG/ML 30 ML VIAL ONE; -SIMV40TA2 PO; -SYMIN/8045 INH; -ULT50X PO; -VITA80005 PO
[2024-12-22] MEDS: FAMOTIDINE 20 MG TAB PO SCH (08:46)
[2024-12-22] MEDS: GABAPENTIN 300 MG CAP PO SCH (08:46)
[2024-12-22] MEDS: ACETAMINOPHEN 500 MG TAB PO SCH ×2 (08:46→14:36)
[2024-12-22] MEDS: LR 60ML/HR IV SCH (08:46)
[2024-12-22] MEDS: dexAMETHasone**PF** 10 MG/ML VIAL IV SCH (08:46)
[2024-12-22] MEDS: LR 500ML BOLUS, THEN 15ML/HR IV SCH (08:47)
[2024-12-22] MEDS ORDERED: ONDANSETRON INJ 2 MG/ML 2 ML VIAL ONE (09:06)
[2024-12-22] MEDS ORDERED: PROPOFOL IV EMULSION 10 MG/ML 20 ML VIAL IV ONE ×2 (09:06→10:47)
[2024-12-22] MEDS ORDERED: DexMEDEtomidine HCL IV 100 MCG/ML VIAL IV ONE (09:07)
[2024-12-22] MEDS ORDERED: MIDAZOLAM HCL 1 MG/ML 2ML VIAL ONE (09:07)
--- NOTE | 2024-12-22 09:09 | History & Physical Bridge Note ---
Date of Service December 22, 2024 History & Physical Bridge Note I have examined the patient, reviewed the History & Physical and in the interval since the performance of the History & Physical I have noted the following changes of clinical significance: no changes noted
[2024-12-22] MEDS ORDERED: KETOROLAC 30 MG/ML VIAL IV PRN (09:47)
[2024-12-22] MEDS ORDERED: ATROPINE SULFATE 0.1 MG/ML 10ML SYR IV PRN (09:47)
[2024-12-22] MEDS ORDERED: ONDANSETRON INJ 2 MG/ML 2 ML VIAL IV PRN ×2 (09:47→12:32)
[2024-12-22] MEDS ORDERED: HYDROmorphone INJ 1 MG/ML SYRINGE IV PRN (09:47)
[2024-12-22] MEDS: TRANEXAMIC ACID 1,000 MG **IV Pre-op IV SCH (09:50)
[2024-12-22] MEDS ORDERED: KETAMINE HCL 10MG/ML SYR ONE (10:11)
[2024-12-22] MEDS: ROPIV 0.5% 246mg, Ketorolac 30mg, EPINEPHrine 0.5mg in NSS INFIL SCH (10:39)
[2024-12-22] MEDS: ORTHO JOINT ANESTHETIC ONE (10:39)
--- NOTE | 2024-12-22 11:19 | Operative Report ---
PG Post Operative Report Pre & Post Diagnosis Operation Date: 12/22/24 10:00 Pre-Op Diagnosis: Osteoarthritis of Right Knee Post-Op Diagnosis: Osteoarthritis of Right Knee I identified the patient and participated in the time-out.: Yes Procedure Operation Date: 12/22/24 10:00 Actual Procedures p Robotic Assisted Right Total Knee Arthroplasty, Uncemented(Right) - Kam Hansen DO Surgeon Kam Hansen DO Producer Fan Obregon PA-C Estimated Blood Loss 30 Findings Consistent with Post-Op Diagnosis Specimens Right femoral and tibial bone Description of Procedure Implants used: I used a Patricio Persona total knee arthroplasty system with a size 11 standard PS femur, F tibia, 35 patella, and a size 10 CPS polyethylene bearing. All components were press-fit into place. Cruz arrived [facility] for the above procedure. He was seen in the preoperative holding area and the operative extremity was identified and signed. he was given a preoperative antibiotic, TXA, a spinal anesthetic and an adductor nerve block. He was taken back to the operating room and laid on the table in supine position. He was given basic sedation. The operative knee was then prepped and draped in sterile fashion. A timeout was done, and the patient and the operative extremity was properly identified. A midline incision was made directly over the patella. Dissection was taken down to the extensor mechanism. A medial parapatellar arthrotomy was used. The medial retinaculum was released and the fat pad was mostly excised. The knee was flexed and the ACL, PCL, and meniscus were removed. The alignment of the knee replacement was assisted with a [employer] robotic knee. The femoral array was pinned in the distal femur and the tibial array was pinned using a percutaneous technique in the upper shaft of the tibia. The robot was appropriately calibrated and the structure of the knee was mapped out. The components were then manipulated on the screen to account for any malalignment and to assist in gap balancing. Once I was happy with the placement of the components on the screen, a distal femoral cutting guide was brought in place. The distal femur was then resected. The femur measured to be a size 11. A 4-in-1 cutting block was then put into place by the robot and 2 peg holes were drilled. The 4-in-1 cutting block was then impacted into place and anterior, posterior, and chamfer cuts were made. The cutting block was then brought down to the tibia and pinned into place. The proximal tibia was then resected. The posterior aspect of the knee was then opened up and any additional meniscus fragments and osteophytes were removed. The tibia measured to be a size F. The tibial plate was then placed in the appropriate rotation and the tibia was drilled and punched. Trial components were then placed. The patella was then everted and 9 mm was resected off the posterior aspect of the patella. The patella measured to be a size 35. 3 peg holes were then drilled. A trial patella was placed. A size 10 CPS polyethylene insert was then trialed. The knee was brought through a full range of motion and felt to be stable. Trial components were then removed. The surrounding soft tissues were injected with 100 cc of an orthopedic pain control cocktail. All components were then press-fit into place. The final polyethylene insert was then snapped into place. The tourniquet was deflated. Hemostasis was obtained. A dilute betadyne lavage was then done for 3 minutes. The joint was then irrigated with normal saline solution. The medial parapatellar arthrotomy was then closed with #1 Vicryl suture. The skin was closed with 2-0 Vicryl, 3-0V lock suture, and Maged Zipline. A soft compressive dressing was placed. He was then transferred to a hospital bed and taken to the postanesthesia care unit in stable condition. He tolerated the procedure well. Fan Obregon PA-C, was present for the entire procedure. He was critical for patient positioning, prepping, draping, retraction exposure, wound closure and application of sterile dressing. I attest to the content of the Intraoperative Record and any orders documented therein. Any exceptions are noted below.
--- NOTE | 2024-12-22 12:08 | Anesthesiology Progress Note ---
Date of Service December 22, 2024 Anesthesia Post Procedure Vital Signs Vital Signs: Temp Pulse Pulse Resp BP BP Pulse Ox 12/22/24 11:50 74 15 108/88 95 12/22/24 11:41 36 C L 77 17 113/71 97 12/22/24 08:36 36.5 C 76 18 162/91 H 98 O2 Del Method O2 Flow Rate 12/22/24 11:50 Room Air 12/22/24 11:41 Oxymask 5 12/22/24 08:36 Room Air Transfer of Care Handoff Completed per policy Notes Mental Status: alert / awake / arousable Patient Amnestic to Procedure: Yes Nausea / Vomiting: adequately controlled Pain: adequately controlled Airway Patency, RR, SpO2: stable & adequate BP & HR: stable & adequate Hydration State: stable & adequate Neuraxial Anesthesia: was administered and sensory block is resolving Anesthetic Complications: no major complications apparent
--- NOTE | 2024-12-22 12:17 | XRay Report ---
XR knee RT 1 or 2V routine CLINICAL HISTORY: Surgical Post Op COMPARISON: None FINDINGS: Right knee prosthesis shows no hardware complication. There is expected soft tissue gas. IMPRESSION: Unremarkable postoperative exam. ACT 112: Negative or not required by law. Electronically signed by: Tyrone Shore M.D. 12/22/2024 12:15 PM
[2024-12-22] MEDS ORDERED: diphenhydrAMINE Capsule 25 MG CAP PO PRN (12:32)
[2024-12-22] MEDS ORDERED: ALBUTEROL HFA 8 GM INHALER INH PRN (12:32)
[2024-12-22] MEDS ORDERED: NALOXONE HCL 0.4 MG/1 ML VIAL/CARP IV PRN (12:32)
[2024-12-22] MEDS ORDERED: HYDROmorphone INJ 0.5 MG/0.5 ML SYR IV PRN (12:32)
[2024-12-22] MEDS ORDERED: METOCLOPRAMIDE HCL INJ 5 MG/ML 2 ML VIAL IV PRN (12:32)
[2024-12-22] MEDS ORDERED: MAGNESIUM HYDROXIDE SUSP 30 ML UDC PO PRN (12:32)
[2024-12-22] MEDS ORDERED: TAMSULOSIN HCL 0.4 MG CAP PO PRN (12:32)
[2024-12-22] MEDS ORDERED: DEXTROSE 50% 50 ML SYRINGE IV PRN (14:15)
[2024-12-22] MEDS ORDERED: GLUCOSE 40% GEL 15 GM TUBE PO PRN (14:15)
[2024-12-22] MEDS ORDERED: GLUCOSE 10 TAB/TUBE PO PRN (14:15)
[2024-12-22] MEDS ORDERED: CARBOHYDRATES FOR HYPOGLYCEMIA PO PRN (14:15)
[2024-12-22] MEDS ORDERED: GLUCAGON FOR INJ 1 MG VIAL SQ PRN (14:15)
[2024-12-22] MEDS: SODIUM CHLORIDE 0.9% 1,000 ML IV SCH (14:36)
[2024-12-22] MEDS: KETOROLAC TROMETHAMINE 15 MG/ML VIAL IV SCH (14:37)
[2024-12-22] MEDS: INSULIN ASPART PER UNIT CHARGE SC SCH (17:07)
[2024-12-22] MEDS ORDERED: [UNRECOGNIZED DRUG - OTHER] PO SCH (21:00)
[2024-12-22] MEDS: SENNA 8.6 MG TAB PO SCH (21:06)
[2024-12-22] MEDS: MELATONIN 3 MG TAB PO SCH (21:06)
[2024-12-22] MEDS: DOCUSATE SODIUM 100 MG CAP PO SCH (21:08)
[2024-12-22] MEDS: MONTELUKAST SODIUM 10 MG TABLET PO SCH (21:09)
[2024-12-22] MEDS: SIMVASTATIN 40 MG TAB PO SCH (21:09)
[2024-12-22] MEDS: ASPIRIN 81 MG ECTAB PO SCH (21:09)
--- NOTE | 2024-12-23 07:09 | Orthopedic Progress Note ---
Date of Service December 23, 2024 Assessment & Plan (1) Status post total right knee replacement: Overall he is doing fairly well. He is not having much pain in the right knee. He will be seen by physical therapy today for ambulation and range of motion exercises. The nursing staff can change his dressing after physical therapy. He is on aspirin for DVT prophylaxis. He can be discharged to home later today. He will follow-up with orthopedics in 2 weeks. Tosha Arroyo was seen and examined at bedside this morning. Overall he is doing fairly well. He is not having too much pain in his right knee. He has been up and ambulating to the bathroom. He has no complaints.. Review of Systems All systems reviewed & are unremarkable except as noted in HPI & below. Physical Exam On physical exam of the right knee, the dressing does have some drainage mostly on the medial aspect. He has active motion of his ankle. He can do a straight leg raise.. Results & Data Results & Data Laboratory Results . Diagnostic Findings Postoperative x-rays of the right knee show the prosthesis to be in anatomic alignment without any evidence of fracture, dislocation, or loosening.. PG Care Time/CCT Total # of Minutes Spent Total Time Spent with Patient: Total time spent is greater than 50% in coordination of care (as documented) at patient's floor/unit and/or counseling patient: Coding Level of Care Code 24529 Post Operative Follow-Up Diagnoses Status post total right knee replacement Z96.651
[2024-12-23] MEDS: FLUTICASONE/VILANTEROL 200/25MCG 14 PUFFS/INHALER INH SCH (08:08)
[2024-12-23] MEDS: MULTIVITAMIN TAB PO SCH (08:09)
[2024-12-23 08:10] VITALS: BP 144/86; PULSE 101; RESP 19; TEMP 97.9; O2SAT 98
[2024-12-23] MEDS ORDERED: SITAGLIPTIN 25 MG PO SCH (09:00)
[2024-12-23] MEDS: MAGNESIUM OXIDE 400 MG TAB PO SCH (10:13)
== END 2024-12-23 11:21 | disposition home or self-care (01) ==
LOC: PACUINP 08:21 → ASU 08:21 → 3E 14:02